=== PATIENT | female | born 1945 | race Caucasian/White ===

== ENCOUNTER → 2019-04-14 | Outpatient (CLI) | payer MEDICARE, OTHER ==
--- NOTE | 2019-04-14 18:23 | RAD ---
PROCEDURE: HAND RIGHT 3V STUDY DATE: 04/14/2019 CLINICAL INDICATION / HISTORY: Right hand pain. TECHNIQUE: PA, lateral and oblique views of the right hand. COMPARISON: None FINDINGS: No fracture or dislocation is identified. The bone density is normal. The joint spaces are maintained, and there are no erosions to suggest an inflammatory arthropathy. The soft tissues are unremarkable. IMPRESSION: No acute osseous abnormality. Electronically signed by: Otilia Morales MD (04/14/2019 6:20 PM) [facility]
== END | disposition home or self-care (01) ==
LOC: DXRAD 14:58
PROVIDERS: ATTEND Physician Assistant
DX: M79.644 Pain in right finger(s) (principal)
CPT/HCPCS: 73130

== ENCOUNTER → 2020-03-15 | Outpatient (CLI) | payer MEDICARE, OTHER ==
--- NOTE | 2020-03-15 15:59 | RAD ---
EXAM: Left hand, 3 views HISTORY: Pain. COMPARISON: None. FINDINGS: 3 views of the left hand are obtained. There is no acute fracture, dislocation or subluxati on. No foreign body is seen. IMPRESSION: No acute osseous finding. Electronically signed by: Kenna Hester MD (03/15/2020 3:57 PM) [id number]
== END ==
LOC: DXRAD 15:07
PROVIDERS: ATTEND Specialist
DX: M79.645 Pain in left finger(s) (principal)
CPT/HCPCS: 73130